=== PATIENT | male | born 1995 | race Caucasian/White ===

== ENCOUNTER 2021-09-10 00:19 | Emergency (ER) | payer SELFPAY ==
[~2021-09-10] VITALS: Ht 175.3 cm; Wt 95.3 kg
[2021-09-10 01:15] VITALS: BP_SYST 129
--- NOTE | 2021-09-10 01:18 | NUR ---
Patient triaged and placed in waiting room. VSS and patient appears in no acute distress at this time. Accompanied by self, awaiting available bed, and MD notified of need for MSE.
--- NOTE | 2021-09-10 04:00 | NUR ---
Patient called in. no answer. Patient left without being seen. No further treatment provided. ER MD aware
== END 2021-09-10 04:00 | disposition left against medical advice (07) ==
LOC: SED 00:19
DX: H92.02 Otalgia, left ear (principal); Z53.21 Procedure and treatment not carried out due to patient leaving prior to being seen by health care provider